=== PATIENT | male | born 1945 | race Caucasian/White ===

== ENCOUNTER 2021-04-21 10:04 | Emergency (ER) | payer MEDICARE ==
[~2021-04-21] VITALS: Ht 180.3 cm; Wt 154.6 kg
[2021-04-21 10:28] VITALS: BP 120/67
== END 2021-04-21 13:29 | disposition home or self-care (01) ==
LOC: ER 10:05
DX: S00.12XA Contusion of left eyelid and periocular area, initial encounter (principal); S00.81XA Abrasion of other part of head, initial encounter; S09.90XA Unspecified injury of head, initial encounter; M25.461 Effusion, right knee; Z88.8 Allergy status to other drugs, medicaments and biological substances; W08.XXXA Fall from other furniture, initial encounter; Y93.89 Activity, other specified; Y92.89 Other specified places as the place of occurrence of the external cause; Y99.8 Other external cause status
CPT/HCPCS: 29530; 70450; 70486; 72125; 73564; 99285